=== PATIENT | female | born 1995 | race Caucasian/White ===

== ENCOUNTER → 2017-05-10 | Outpatient (CLI) | payer OTHER | END | disposition home or self-care (01) | LOC: CFH 13:29 | PROVIDERS: ATTEND Internal Medicine | DX: J32.1 Chronic frontal sinusitis (principal); J32.2 Chronic ethmoidal sinusitis; G43.909 Migraine, unspecified, not intractable, without status migrainosus | CPT/HCPCS: 70551 ==

== ENCOUNTER 2017-05-26 08:15 | Emergency (ER) | payer OTHER ==
[~2017-05-26] VITALS: Ht 170.2 cm; Wt 96.4 kg
[2017-05-26 08:17] VITALS: BP 134/80
== END 2017-05-26 10:03 | disposition home or self-care (01) ==
LOC: ED 09:45
DX: L03.113 Cellulitis of right upper limb (principal)
CPT/HCPCS: 99283

== ENCOUNTER 2017-12-02 08:23 | Emergency (ER) | payer OTHER, BC ==
[~2017-12-02] VITALS: Ht 170.2 cm; Wt 95.0 kg
[2017-12-02] MEDS ORDERED: birth control (08:45)
[2017-12-02] MEDS ORDERED: [UNRECOGNIZED DRUG - OTHER] (08:45)
[2017-12-02] MEDS ORDERED: ELET40TA PO (09:02)
[2017-12-02] MEDS ORDERED: KETOROLAC 30 MG/1 ML ONE (09:18)
[2017-12-02 09:28] LABS: BASOPHILS # (AUTO) 0.02 x10^3/uL (0-0.1); BASOPHILS % (AUTO) 0 % (0-1); EOSINOPHILS % (AUTO) 2 % (1-7); LYMPHOCYTES # (AUTO) 1.37 x10^3/uL (1-3.4); LYMPHOCYTES % (AUTO) 22 % (22-44); MD NO; MEAN CORPUSCULAR HEMOGLOBIN 30.7 pg (27.0-34.8); MEAN CORPUSCULAR HGB CONC 34.4 g/dL (32.4-35.8); MEAN CORPUSCULAR VOLUME 89.2 fL (80-100); MEAN PLATELET VOLUME 8.6 fL (7.4-10.4); MONOCYTES # (AUTO) 0.88 x10^3/uL (0.2-0.8); MONOCYTES % (AUTO) 14 % (2-9); NEUTROPHILS # (AUTO) 3.86 x10^3/uL (1.8-6.8); NEUTROPHILS % (AUTO) 62 % (42-75); PLATELET COUNT 189 x10^3/uL (130-400); RED BLOOD COUNT 5.28 x10^6/uL (3.82-5.3); RED CELL DISTRIBUTION WIDTH 12.3 % (9.6-15.2)
[2017-12-02] MEDS ORDERED: KETOROLAC 30 MG/1 ML IM ONE (09:30)
[2017-12-02 09:36] LABS: INTERNATIONAL NORMALIZED RATIO 0.98 (0.93-1.1); PROTHROMBIN TIME 10.2 Seconds (9.6-11.5)
[2017-12-02 09:39] LABS: HCG UR SG 1.015 (1.003-1.030); MICROSCOPIC AUTO
[2017-12-02 09:40] LABS: ALANINE AMINOTRANSFERASE 23 U/L (12-78); ALBUMIN 3.2 g/dL (3.4-5.0); ANION GAP 9 mmol/L (5-15); CHLORIDE 106 mmol/L (98-107); CREATININE 0.84 mg/dL (0.55-1.02)
[2017-12-02 09:42] LABS: ALKALINE PHOSPHATASE 45 U/L (45-117); BILIRUBIN,TOTAL 0.4 mg/dL (0.2-1.0); TOTAL PROTEIN 7.5 g/dL (6.4-8.2)
[2017-12-02 10:05] LABS: CULTURE INDICATED? NO
[2017-12-02 11:48] VITALS: BP 110/59
== END 2017-12-02 12:23 | disposition home or self-care (01) ==
LOC: ED 10:04
DX: R10.32 Left lower quadrant pain (principal)
CPT/HCPCS: 36415; 74021; 76830; 80053; 81001; 81025; 83605; 83690; 85025; 85610; 96372; 99285; J1885

== ENCOUNTER 2017-12-03 08:17 | Emergency (ER) | payer OTHER ==
[~2017-12-03] VITALS: Ht 170.2 cm; Wt 95.0 kg
[~2017-12-03 08:17] MED LIST: ELET40TA PO; [UNRECOGNIZED DRUG - OTHER]; birth control
[2017-12-03 09:19] LABS: BASOPHILS # (AUTO) 0.02 x10^3/uL (0-0.1); BASOPHILS % (AUTO) 0 % (0-1); EOSINOPHILS # (AUTO) 0.03 x10^3/uL (0-0.4); EOSINOPHILS % (AUTO) 1 % (1-7); LYMPHOCYTES # (AUTO) 1.36 x10^3/uL (1-3.4); LYMPHOCYTES % (AUTO) 22 % (22-44); MD NO; MEAN CORPUSCULAR HEMOGLOBIN 30.5 pg (27.0-34.8); MEAN CORPUSCULAR HGB CONC 34.5 g/dL (32.4-35.8); MEAN CORPUSCULAR VOLUME 88.5 fL (80-100); MEAN PLATELET VOLUME 8.6 fL (7.4-10.4); MONOCYTES % (AUTO) 18 % (2-9); NEUTROPHILS # (AUTO) 3.65 x10^3/uL (1.8-6.8); NEUTROPHILS % (AUTO) 59 % (42-75); PLATELET COUNT 214 x10^3/uL (130-400); RED BLOOD COUNT 4.93 x10^6/uL (3.82-5.3); RED CELL DISTRIBUTION WIDTH 12.8 % (9.6-15.2)
[2017-12-03] MEDS ORDERED: SODIUM CHLORIDE 0.9% 1,000ML IVBOLUS ONE (09:30)
[2017-12-03] MEDS ORDERED: SODIUM CHLORIDE FLUSH 10ML SYR IVF ONE (09:30)
[2017-12-03 09:31] LABS: ALBUMIN 3.2 g/dL (3.4-5.0); ANION GAP 7 mmol/L (5-15); CALCIUM 9.1 mg/dL (8.5-10.1); CHLORIDE 106 mmol/L (98-107)
[2017-12-03 09:34] LABS: ALANINE AMINOTRANSFERASE 25 U/L (12-78); ALKALINE PHOSPHATASE 46 U/L (45-117); BILIRUBIN,TOTAL 0.5 mg/dL (0.2-1.0); TOTAL PROTEIN 7.2 g/dL (6.4-8.2)
[2017-12-03 09:52] LABS: MICROSCOPIC AUTO
[2017-12-03 09:54] LABS: CULTURE INDICATED? YES
[2017-12-03 10:21] LABS: CLOSTRIDIUM DIFFICILE ANTIGEN NEGATIVE; CLOSTRIDIUM DIFFICILE TOXIN NEGATIVE (Negative)
[2017-12-03] MEDS ORDERED: OMNIPAQUE 350 MG/ML, 100ML BOTTLE ONE (11:30)
[2017-12-03 12:34] VITALS: BP 116/78
== END 2017-12-03 12:53 | disposition home or self-care (01) ==
LOC: ED 10:08
DX: K52.89 Other specified noninfective gastroenteritis and colitis (principal)
CPT/HCPCS: 36415; 74177; 80053; 81001; 85025; 87086; 87324; 89055; 96360; 99285; J7030; Q9967